=== PATIENT | female | born 1970 | race Caucasian/White ===

== ENCOUNTER → 2018-11-27 | Outpatient (CLI) | payer MEDICARE ==
--- NOTE | 2018-11-29 12:55 | MRI ---
EXAM DESCRIPTION: Lumbar Spine w/o Contrast : Magnetic Resonance Imaging. CLINICAL HISTORY: BACK PAIN COMPARISON: Right shoulder MRI scan without contrast on the same visit. No prior lumbosacral spine images available. TECHNIQUE: Multiplanar, multiple standard sequences, non contrast MRI, lumbar spine. FINDINGS: L5-S1: The disc space is imaged on axial T2 series 501, image 3. Desiccated signal with no posterior bulge. The right transverse process of S1 is shorter than the left transverse process and may be transitional/lumbarized with suggestion of a incompletely articulation with the right iliac bone/SI joint. Bilateral facet hypertrophic arthrosis more on the right with posterior flavum ligament thickening also more on the right. Decreased height of the L5-S1 disc space. Disc and pedicle abutting the exiting left L5 nerve root with mild narrowing of the right foramen. Possible deformity of the right L5 pars interarticularis. L4-L5: Minimal disc desiccation with disc space preserved. No significant disc bulging. Bilateral posterior ligament thickening with bilateral facet joint effusion. Mild canal and foraminal narrowing. L3-L4: Minimal disc desiccation and minimal disc space loss. Bilateral flavum ligament hypertrophy. Mild canal narrowing. Bilateral foramina are patent. L2-3 disc, L1-2 disc, and T12-L1 disc with normal signal and disc space maintained. Posterior elements unremarkable. Canal and foramina are patent. Anterior spondylosis and disc space loss at T12-L1. Mild canal narrowing. Bilateral foramina are patent. Conus terminates at L1 level. Circumscribed hyperintense T1 and T2 lesion at L1 consistent with a hemangioma. No scoliosis. Paravertebral soft tissues unremarkable.. Normal marrow signal in the remaining vertebral bodies and the posterior elements. Vertebral bodies are not compressed at any level. IMPRESSION: 1. S1 vertebra may be partially transitional with lumbarization of the right transverse process, incomplete right superior SI joint, and decreased L5-S1 disc space. Consider confirmation with 5 view lumbosacral spine radiographs and AP view of pelvis. Transitional vertebra can be a cause of abnormal biomechanics and a source of back pain. 2. Posterior elements with hypertrophic changes at L4-5 and L3-4 but no significant disc bulge. Possible deformity right L5 pars which can also be evaluated with the lumbosacral spine series described above. Electronically signed by: Steven Guerrier MD 11/29/2018 12:53 PM CDT
--- NOTE | 2018-11-29 13:57 | MRI ---
EXAM DESCRIPTION: Shoulder,Right: Magnetic Resonance Imaging. CLINICAL HISTORY: PAIN. Decreased right shoulder range of motion. 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 COMPARISON: Radiograph right shoulder 11/20/2018. MRI scan of the lumbar spine on the same visit. TECHNIQUE: Multiplanar, high-field MRI, multiple sequences, without contrast, right shoulder. FINDINGS: Edema in the anterior fibers of the supraspinatus tendon at the insertion with minimal swelling. Minimal edema in the subacromial-subdeltoid bursa. Focal hyperintense signal lesion in the posterior fibers of the supraspinatus tendon insertion. Edema in the proximal and mid tendon. Infraspinatus tendon negative. Other tendons of the rotator cuff are intact. No supraspinatus muscle atrophy. Multiple erosions on the posterior mid and anterior greater tuberosity. Minimal effusion in the AC joint and fluid in the inferior joint capsule. Coracoid ligaments are intact. Downsloping of the lateral acromion. Minimal effusion in the subcutaneous coracoid bursa. Minimal right glenohumeral joint effusion. Abnormal signal in the anterior aspect of the inferior labrum abutting the attachment of the inferior glenohumeral ligament. No loose bodies. Bicipital labral anchor is intact. Long head biceps tendon within the bicipital groove, and shortened biceps tendon is unremarkable. No glenohumeral osteochondral lesions. IMPRESSION: 1. Small focal undersurface insertion tear of the posterior fibers of the right supraspinatus tendon on the greater tuberosity with underlying cystic degenerative changes in the bone. Supraspinatus tendinopathy anterior fibers at the insertion, and also in the proximal and mid tendon. Patellar tendons are intact. Minimal edema in the subacromial-subdeltoid bursa. 2. Subcoracoid bursal effusion. Arthrosis and effusion in the AC joint. Downward sloping of the lateral acromion. These findings could be causing impingement syndrome clinically. Ligaments are intact. 3. Irregularity of the anterior aspect of the inferior labrum abutting the insertion of the inferior glenohumeral ligament. Consider follow-up right shoulder MR arthrography to evaluate for labral tear. Glenohumeral joint effusion but no loose bodies. Electronically signed by: Steven Guerrier MD 11/29/2018 1:55 PM CDT
== END ==
LOC: MRI 12:59
PROVIDERS: ATTEND Nurse Practitioner Family
DX: S46.911A Strain of unspecified muscle, fascia and tendon at shoulder and upper arm level, right arm, initial encounter (principal); M19.011 Primary osteoarthritis, right shoulder; M51.87 Other intervertebral disc disorders, lumbosacral region

== ENCOUNTER → 2020-02-15 | Outpatient (CLI) | payer MEDICARE ==
--- NOTE | 2020-02-15 14:34 | CT ---
EXAM DESCRIPTION: Lumbar Spine CLINICAL HISTORY: BACK PAIN COMPARISON: MRI November 27, 2018 TECHNIQUE: Non contrast transaxial CT images of the lumbar spine are obtained with coronal and sagittal reconstructed images. This exam was performed according to our departmental dose-optimization program, which includes automated exposure control, adjustment of the mA and/or kV according to patient size and/or use of iterative reconstruction technique . FINDINGS: GENERAL Lumbar vertebral body heights are maintained. Normal alignment of the lumbar spine. No spondylolysis. Surgical clips from cholecystectomy. Mild nonobstructing bilateral nephrolithiasis measures less than 3 mm. Colon diverticulosis. L1-2 No significant findings. L2-3 No significant findings. L3-4 Limbus vertebrae of the anterior superior plate of L4. Mild facet hypertrophic and degenerative changes. No spinal canal stenosis or foraminal encroachment. L4-5 Moderate bilateral facet hypertrophic and degenerative changes with ligamentum flavum thickening. Small area in the left facet joint. Mild broad-based disc bulging. Mild spinal canal stenosis. Minimal bilateral foraminal encroachment. L5-S1 Moderate to severe disc space narrowing and mild vacuum disc asymmetric towards the left. Moderate left and severe right facet hypertrophic and degenerative changes. No spinal canal stenosis. Moderate left greater than right foraminal encroachment. IMPRESSION: [id number] disc degenerative changes of the lumbar spine are seen with facet arthropathy most significant from L4 through S1 as described above. Mild spinal canal stenosis seen at L4-5. Moderate left greater than right foraminal encroachment is seen at L5-S1. Electronically signed by: Naseem Saldana MD 02/15/2020 2:32 PM CDT
== END | disposition home or self-care (01) ==
LOC: CT 10:22
PROVIDERS: ATTEND Family Medicine
DX: M54.9 Dorsalgia, unspecified (principal)